=== PATIENT | female | born 1935 | race Caucasian/White ===

== ENCOUNTER 2018-08-28 19:23 | Inpatient (IN) | payer BC ==
[~2018-08-28] VITALS: Ht 154.9 cm; Wt 42.6 kg
--- NOTE | 2018-08-28 19:23 | NUR ---
PT [id number] FROM HOME C/O SLURRED SPEECH, L SIDE WEAKNESS SINCE 1700 HOURS. NO WITNESSES, PATIENT STATES SHE STARTED FEELING BAD AROUND 1700 HOURS. AOX4. DENIES PAIN AT THIS TIME. PT STATES UNABLE TO MOVE LEFT ARM EARLIER, ABLE TO NOW. PT ON MONITOR IN BED 8. DR. OCHOA AT BEDSIDE FOR EVXIAO.
--- NOTE | 2018-08-28 19:31 | NUR ---
TECH AT BEDSIDE FOR EKG
--- NOTE | 2018-08-28 19:32 | NUR ---
BLOOD DRAWN AND COLLECTED BY LAB
--- NOTE | 2018-08-28 19:39 | NUR ---
PT TAKEN TO [facility]IA [facility] WITH RN
[2018-08-28 19:44] LABS: BASOPHILS % (AUTO) 0.3 % (0.0-2.0); EOSINOPHILS % (AUTO) 1.1 % (0.0-6.0); HEMATOCRIT 36 % (33-45); LYMPHOCYTES # (AUTO) 0.7 /CMM (0.8-4.8); LYMPHOCYTES % (AUTO) 7.5 % (20.0-44.0); MEAN CORPUSCULAR HGB CONC 33 g/dl (31.0-36.0); MEAN CORPUSCULAR VOLUME 90 fL (82-100); MONOCYTES # (AUTO) 0.8 /CMM (0.1-1.30); MONOCYTES % (AUTO) 8.3 % (2.0-12.0); NEUTROPHILS # (AUTO) 7.6 /CMM (1.8-8.9); NEUTROPHILS % (AUTO) 82.8 % (43.0-81.0); PLATELET COUNT (AUTO) 181 /CMM (150-450); RED BLOOD CELL COUNT(AUTO) 4.03 MIL/uL (4.0-5.2); WHITE BLOOD COUNT (AUTO) 9.2 K/uL (4.3-11.0)
--- NOTE | 2018-08-28 19:49 | NUR ---
PT RETURNED FROM CT VIA GURNEY. XRAY DONE AT RADIOLOGY. PT TOLERATED WELL. PT ON MONITOR IN BED 8.
[2018-08-28 19:50] LABS: CALCIUM, SERUM 9.2 mg/dL (8.5-10.1); CARBON DIOXIDE 22 mmol/L (21-32); CHLORIDE 105 mmol/L (98-107); CREATININE 0.7 mg/dL (0.6-1.3); GLUCOSE 156 mg/dL (74-106); POTASSIUM 3.8 mmol/L (3.5-5.1); SODIUM SERUM 140 mmol/L (136-145); UREA NITROGEN, BLOOD 17 mg/dL (7-18)
[2018-08-28] MEDS ORDERED: IV NS 0.9% 500 ML BAG IV ONE (20:00)
--- NOTE | 2018-08-28 20:05 | NUR ---
SWALLOW SCREEN COMPLATED. PASSED. PT TOLERATED WELL.
--- NOTE | 2018-08-28 20:08 | NUR ---
SISTER AND NEIGHBOR AT BEDSIDE
--- NOTE | 2018-08-28 20:25 | NUR ---
NIECE AND NEPHEW AT BEDSIDE
[2018-08-28] MEDS ORDERED: ASPIRIN 325 MG TABLET ONE (20:26)
[2018-08-28] MEDS ORDERED: ASPIRIN 325 MG TABLET PO ONE (20:30)
--- NOTE | 2018-08-28 20:30 | NUR ---
PT REFUSED ASPIRIN. AWARE.
--- NOTE | 2018-08-28 20:58 | NUR ---
LESLYE WAS CALLED. PYROMETALLURGICAL ENGINEER WAS PAGED
[2018-08-28 21:06] LABS: CHOLESTEROL 191 mg/dL (<200); HDL CHOLESTEROL 64 mg/dL (40-60); LDL 109 mg/dL (0-99); TRIGLYCERIDES 95 mg/dL (30-150)
[2018-08-28] MEDS ORDERED: MAGNESIUM HYDROXIDE 30 ML UDC PO PRN (21:30)
[2018-08-28] MEDS ORDERED: ACETAMINOPHEN 325 MG TABLET PO PRN (21:30)
[2018-08-28] MEDS ORDERED: MAG HYDROX/AL HYDROX/SIMETH 30 ML UDC PO PRN (21:30)
[2018-08-28] MEDS ORDERED: ZOLPIDEM TARTRATE 5 MG TABLET PO PRN (21:30)
[2018-08-28] MEDS ORDERED: HYDROCODONE/APAP 5/325MG 1 EACH TABLET PO PRN (21:30)
[2018-08-28] MEDS ORDERED: ONDANSETRON HCL/PF 4 MG/2 ML VIAL IVP PRN (21:30)
[2018-08-28] MEDS ORDERED: Z GUARD REMEDY 2 OZ OINT TP PRN (21:30)
--- NOTE | 2018-08-28 21:42 | NUR ---
CALLED NURS SUP FOR BED.
--- NOTE | 2018-08-28 21:49 | NUR ---
TELE BED 105 GIVEN
--- NOTE | 2018-08-28 21:59 | NUR ---
REPORT GIVEN TO HANK MOREL FOR [facility]
[2018-08-28 22:05] VITALS: BP 148/70
--- NOTE | 2018-08-28 22:05 | NUR ---
DOCTOR OSTEOPATHIC NOTE PATIENT ADMITTED FOR TIA, AOX3, ON TELE SR, ROOM AIR, NO S/SX OF CARDIAC OR RESPIRATORY DISTRESS, LEFT HAND #20G AND RAC #20G SL, BOTH PATENT FLUSHING WELL, DENIES PAIN, SKIN KEPT CLEAN AND DRY, SAFETY MAINTAINED AT ALL TIMES, BED IN LOW LOCKED POSITION, CALL LIGHT WITHIN REACH, WILL CONTINUE TO MONITOR FOR ANY CHANGES IN CONDITION.
[2018-08-28 22:25] LABS: ALBUMIN 3.4 g/dL (3.4-5.0); BILIRUBIN,DIRECT 0.1 mg/dL (0.0-0.2); BILIRUBIN,TOTAL 0.6 mg/dL (0.2-1.0); TOTAL PROTEIN, SERUM 7.7 g/dL (6.4-8.2)
[2018-08-28 22:48] LABS: THYROID STIMULATING HORMONE 5.347 uIU/mL (0.358-3.74)
[2018-08-28] MEDS: BLOOD SUGAR DIAGNOSTIC 1 EACH STRIP IN SCH (23:09)
[2018-08-29] VITALS (8 sets, daily range): BP systolic 107–147; BP diastolic 47–70
[2018-08-29] MEDS ORDERED: BLOOD SUGAR DIAGNOSTIC 1 EACH STRIP IN SCH
[2018-08-29 06:34] LABS: BASOPHILS % (AUTO) 0.6 % (0.0-2.0); EOSINOPHILS % (AUTO) 1.6 % (0.0-6.0); HEMATOCRIT 33 % (33-45); HEMOGLOBIN 11.1 g/dL (11.5-14.8); MEAN CORPUSCULAR HGB CONC 34 g/dl (31.0-36.0); MEAN CORPUSCULAR VOLUME 89 fL (82-100); MONOCYTES # (AUTO) 0.7 /CMM (0.1-1.30); MONOCYTES % (AUTO) 10.6 % (2.0-12.0); NEUTROPHILS # (AUTO) 5.2 /CMM (1.8-8.9); NEUTROPHILS % (AUTO) 73.2 % (43.0-81.0); PLATELET COUNT (AUTO) 177 /CMM (150-450); RED BLOOD CELL COUNT(AUTO) 3.68 MIL/uL (4.0-5.2)
[2018-08-29 06:42] LABS: CALCIUM, SERUM 8.6 mg/dL (8.5-10.1); CARBON DIOXIDE 25 mmol/L (21-32); CHLORIDE 107 mmol/L (98-107); CREATININE 0.5 mg/dL (0.6-1.3); GLUCOSE 92 mg/dL (74-106); MAGNESIUM 1.8 mg/dL (1.8-2.4); PHOSPHORUS 3.5 mg/dL (2.5-4.9); POTASSIUM 3.4 mmol/L (3.5-5.1); SODIUM SERUM 143 mmol/L (136-145); UREA NITROGEN, BLOOD 12 mg/dL (7-18)
[2018-08-29] MEDS ORDERED: ASPI-1169 PO (07:27)
[2018-08-29] MEDS ORDERED: METO25TA6 PO (07:27)
[2018-08-29] MEDS ORDERED: CHOL100044 PO (07:27)
[2018-08-29] MEDS ORDERED: ATOR40TA PO (07:27)
[2018-08-29] MEDS ORDERED: MULT-24 PO (07:27)
[2018-08-29] MEDS: BLOOD SUGAR DIAGNOSTIC 1 EACH STRIP IN SCH ×4 (07:34→21:29)
--- NOTE | 2018-08-29 07:35 | NUR ---
RN NOTE RECEIVED PATIENT ALERT AND ORIENTED X3, SHE IS ABLE TO MAKE THINGS KNOWN. BREATHING EVEN AND UNLABORED WITH NO DISTRESS NOTED. ON HEATER ENGINEER HELPER HR OF 65. DENIES ANY PAIN AT THIS TIME. IV SITE INTACT AND PATENT. BED LOW AND LOCKED POSITION. CALL LIGHT WITH IN REACH. WILL CONTINUE TO MONITOR.
--- NOTE | 2018-08-29 10:15 | NUR ---
RN NOTE PT AT BEDSIDE WITH PATIENT
--- NOTE | 2018-08-29 10:32 | NUR ---
RN NOTE SEEN BY DR RODRIGUEZ NEW VERBAL ORDERS START PATIENT ON ASPIRIN 81MG DAILY AND LIPITOR 20MG QHS, PATIENT MADE AWARE. CARRIED OUT AND NOTED.
[2018-08-29] MEDS: ASPIRIN 81 MG TAB.CHEW PO SCH (11:16)
[2018-08-29] MEDS ORDERED: POTASSIUM CHLORIDE 20 MEQ TAB.PRT.SR PO SCH (13:30)
--- NOTE | 2018-08-29 19:02 | NUR ---
RN NOTE PATIENT REMAINED STABLE THROUGHOUT SHIFT. NO ACUTE DISTRESS NOTED. WILL ENDORSE TO NEXT SHIFT TO CONTINUE CONTINUITY OF CARE.
--- NOTE | 2018-08-29 19:15 | NUR ---
CHRONIC SPECIALIST NOTE PATIENT RECEIVED RESTING WITH HOB ELEVATED, AOX3, ON TELE SR, ROOM AIR, NO S/SX OF CARDIAC OR RESPIRATORY DISTRESS, LEFT HAND #20G AND RAC #20G SL, BOTH PATENT FLUSHING WELL, DENIES PAIN, SKIN KEPT CLEAN AND DRY, SAFETY MAINTAINED AT ALL TIMES, BED IN LOW LOCKED POSITION, CALL LIGHT WITHIN REACH, WILL CONTINUE TO MONITOR FOR ANY CHANGES IN CONDITION.
[2018-08-29] MEDS ORDERED: ATORVASTATIN 10 MG TABLET PO SCH (22:00)
[2018-08-30] VITALS: BP 107/54
[2018-08-30 04:00] VITALS: BP 131/72
[2018-08-30 06:57] LABS: CARBON DIOXIDE 27 mmol/L (21-32); CHLORIDE 105 mmol/L (98-107); CREATININE 0.5 mg/dL (0.6-1.3); GLUCOSE 89 mg/dL (74-106); POTASSIUM 3.6 mmol/L (3.5-5.1); SODIUM SERUM 141 mmol/L (136-145); UREA NITROGEN, BLOOD 13 mg/dL (7-18)
--- NOTE | 2018-08-30 07:30 | NUR ---
TENSILE TESTER NOTE RESPIRATORY DISTRESS, RAC #20G SL, PATENT FLUSHING WELL, DENIES PAIN, SKIN KEPT CLEAN AND DRY, SAFETY MAINTAINED AT ALL TIMES, BED IN LOW LOCKED POSITION, CALL LIGHT WITHIN REACH, WILL CONTINUE TO MONITOR CLOSELY ,NO NEUROLOGICAL DEFICIENCY NOTED Addendum: 08/30/18 at 0923 by MARIAH MCKEON RN 08 INFORMATION CODER NOTE NO SOB NOTED NO RESPIRATORY DISTRESS ALERT , ORIENTED X3 ,RESTING COMFORTABLY IN BED
[2018-08-30] MEDS: BLOOD SUGAR DIAGNOSTIC 1 EACH STRIP IN SCH ×2 (07:36→12:00)
[2018-08-30 08:00] VITALS: BP 146/68
[2018-08-30] MEDS: ASPIRIN 81 MG TAB.CHEW PO SCH (08:03)
--- NOTE | 2018-08-30 09:25 | NUR ---
MIX MAKER NOTE ASSISTED TO BSC , ABLE TO URINATE SMALL AMT OF URINE , KEEP CLEAN DRY
--- NOTE | 2018-08-30 09:26 | NUR ---
HEAD OPERATOR NOTE UP ON CHAIR ,NOT IN DISTRESS, NOT IN DISTRESS
--- NOTE | 2018-08-30 09:42 | NUR ---
SUPERVISING EDITOR TRAILER NOTE DIETITIAN AT BEDSIDE
[2018-08-30] MEDS ORDERED: APIX5TAB PO (15:21)
[2018-08-30 16:00] VITALS: BP 146/75
--- NOTE | 2018-08-30 17:00 | NUR ---
RN D/C NOTE RECEIVED D/C TO HOME ORDER WITH HOME HEALTH + PT. PATIENT IN STABLE CONDITION. D/C EDUCATION PROVIDED. EDUCATED R/T NEW MEDICATION ELIQUIS (S/S BLEEDING, SAFETY PRECAUTIONS), S/S INFECTION AND EMERGENCY SYMPTOMS. BELONGINGS CHECKLIST SIGNED. PRESCRIPTIONS GIVEN TO PATIENT. IV REMOVED. NO WOUND PICTURES TO BE TAKEN. CD PROVIDED WITH IMAGING. DRIVEN HOME BY NIECE.
== END 2018-08-30 18:20 | disposition home health service (06) | DRG 69 ==
LOC: ER 19:26 → TELE-TD 21:51 → TELE1 22:35 → MEDSG1 08-30 11:10
PROVIDERS: ADMIT Family Medicine; ATTEND Nurse Practitioner Acute Care
DX: G45.9 Transient cerebral ischemic attack, unspecified (principal); Z95.2 Presence of prosthetic heart valve; R73.9 Hyperglycemia, unspecified; E87.6 Hypokalemia; Z86.73 Personal history of transient ischemic attack (TIA), and cerebral infarction without residual deficits; I48.0 Paroxysmal atrial fibrillation; Z85.71 Personal history of Hodgkin lymphoma
CPT/HCPCS: 36415; 70450-TC; 71045-TC; 80048-TC; 80061-TC; 80076-TC; 82962-TC; 83735-TC; 83880; 84100-TC; 84443-TC; 84484-TC; 85025-TC; 85652-TC; 85730-TC; 87081-TC; 92526; 92611-TC; 93307-TC; 93880-TC; 97116-TC; 97530-TC; 97535-TC; G0378; J7040